=== PATIENT | female | born 1995 | race Two or more races ===

== ENCOUNTER 2024-04-19 11:53 | Emergency (ER) | payer BC, SELFPAY ==
[2024-04-19 12:21] VITALS: BP 122/81; PULSE 98; RESP 16; TEMP 36.8; O2SAT 98; BMI 35.5
--- NOTE | 2024-04-19 12:47 | PD.EDADULT ---
ED General RME/HPI General Chief complaint: General Adult/Misc Complain Stated complaint: Hemorhoids Time Seen by Provider: 04/19/24 12:14 Arrival date/time: 04/19/24 11:53 33-year-old female who is 32 weeks gestation reports with complaints of painful hemorrhoids. Patient states that she has noticed swelling and pain in the hemorrhoids particularly with attempting to have a bowel movement. Patient denies any obstruction of bowel bleeding from the hemorrhoid nausea or vomiting fever or chills. Patient reports having hemorrhoids previously that were lanced and cauterized several months ago. Patient has not been evaluated by GI. Patient states that she has been using [id number] Preparation H with no relief of symptoms Limitations: no limitations Related Data Home Medications ?Medication ?Instructions ?Recorded ?Confirmed ferrous sulfate 325 mg (65 mg 325 mg PO BID 10/14/17 10/14/17 iron) tablet (Iron (ferrous sulfate)) metronidazole 500 mg tablet 500 mg PO BID 10/14/17 10/14/17 vit no.133-ferrous 1 tab PO QDAY 10/14/17 10/14/17 fumarate 28 mg-folic acid 800 mcg tablet () Previous Rx's ?Medication ?Instructions ?Recorded metoclopramide HCl 10 mg tablet 10 mg PO Q6H PRN nausea and 10/15/17 (Reglan) vomiting #60 tabs acetaminophen 325 mg capsule 975 mg (3 x 325 mg) PO Q6H PRN 09/27/19 pain #30 caps cyclobenzaprine 10 mg tablet 10 mg PO TID #30 tabs 09/27/19 lidocaine 5 %-phenylephrine 0.25 1 applic topical TID PRN 04/19/24 %-glycern 14.4 %-petrolatm 15 % hemorrhoids #28 grams cream (Preparation H Rapid Relief-Lidocaine) Allergies Allergy/AdvReac Type Severity Reaction Status Date / Time No Known Allergies Allergy Verified 04/19/24 11:54 Past Medical History Past Medical History CARDIAC: Negative Congestive Heart Failure RESPIRATORY: Negative Chronic Obstructive Pulmonary Disease (COPD) GENITOURINARY: Negative Renal Disease ENDOCRINE: Negative Diabetes Mellitus Type 1 or Diabetes Mellitus Type 2 OTHER HISTORY: Negative Blood Transfusions Social History SMOKING STATUS: Never smoker SUBSTANCE USE: does not use ED Exam General Limitations: Present no limitations General appearance: Present alert and in no apparent distress Abdominal Exam Abdominal exam: Present other (gravid) Rectal Exam Rectal exam: Present hemorrhoids and tenderness Back Exam Back exam: Present normal inspection and full ROM Neurological Exam Neurological exam: Present alert, oriented X3 and CN II-XII intact Psychiatric Psychiatric exam: Present normal affect and normal mood Skin Skin exam: Present warm, dry, intact and normal color Course Course Course Narrative: 29-year-old female 32 weeks gestation reports with complaints of hemorrhoids. Physical exam is a nation notes a large hemorrhoid surrounding rectum however no rectal blockage is noted no bleeding is noted. Patient will be prescribed rectal suppositories and creams and referred to GI for further evaluation and treatment of hemorrhoids. She is stable nontoxic-appearing with stable vital signs and will be discharged Quality Measures none Vital Signs Vital signs: Vital Signs Temperature 98.3 F 04/19/24 12:21 Pulse Rate 98 04/19/24 12:21 Respiratory Rate 16 04/19/24 12:21 Blood Pressure 122/81 04/19/24 12:21 Pulse Oximetry (%) 98 04/19/24 12:21 Oxygen Delivery Method Room Air 04/19/24 12:21 MDM Patient data External records reviewed:: None Clinical information provided by:: patient Social determinants that could affect healthcare access:: none Patient has the following chronic illnesses:: none How is presenting disease/condition affected by chronic disease/condition?: no chronic disease Evaluation data The following diagnostics were reviewed and interpreted by me:: other (specify) (none) Lab and/or radiology exams considered but not ordered:: none Interpretation Summary: none Medications Medications considered but not ordered:: none Medication administrations:: none Consultations Consultation(s) initiated? (list below): No Diagnosis Differential Diagnosis ED Complaint MDM: Internal hemorrhoids versus external hemorrhoids Most likely diagnosis given after review of the tests above:: External hemorrhoids Admission Indicated Admission indicated?: not indicated Explain why admission is indicated or not indicated:: Minor condition Admission Request Was there a request for admission?: No Disposition Plan Disposition Plan: Discharge Discharge Attestation Discharge Attestation: The patient and all family members were given an opportunity to ask questions and understood the discharge instructions. Discharge instructions specifically effects, indications for sooner follow up or return to the emergency department, and the expected course of current diagnosis. Patient condition: Stable Medical Decision Making Differential Diagnosis Differential Diagnosis: Internal hemorrhoids versus external hemorrhoids Discharge Plan Plan Patient Disposition: HOME (Self Care) Prescriptions/Referrals Prescriptions/Med Rec: New Preparation H Rapid Rlf-Lidocn 5-0.25-14.4-15 % cream 1 applic topical TID PRN (Reason: hemorrhoids) Qty: 28 0RF No Action cyclobenzaprine 10 mg tablet 10 mg PO TID Qty: 30 0RF acetaminophen 325 mg capsule 975 mg PO Q6H PRN (Reason: pain) Qty: 30 0RF metronidazole 500 mg Tablet 500 mg PO BID ferrous sulfate [Iron (ferrous sulfate)] 325 mg (65 mg iron) Tablet 325 mg PO BID [id number] fumarate-FA [] 28-800 mg-mcg Tablet 1 tab PO QDAY metoclopramide HCl [Reglan] 10 mg tablet 10 mg PO Q6H PRN (Reason: nausea and vomiting) Qty: 60 0RF Referrals: Justen (PDC)Gabriel MD [Referring Provider] - In 1 week Problem List Clinical Impression: Hemorrhoids Patient/Caregiver Discharge Instructions Discharge Activity: activity as tolerated Education Materials: Treating Hemorrhoids: Self-Care Additional Instructions: Use medication as directed follow-up with GI specialist Print Language: [place]er Stand Alone Forms: Leonela Award Info., Patient Portal Info Letter
== END 2024-04-19 13:10 | disposition home or self-care (01) ==
LOC: SERX 13:13
PROVIDERS: Emergency Provider Emergency Medicine; PCP Family Medicine
DX: O22.43 Hemorrhoids in pregnancy, third trimester (principal); Z3A.32 32 weeks gestation of pregnancy
CPT/HCPCS: 99281